=== PATIENT | female | born 1975 | race Caucasian/White ===

== ENCOUNTER 2017-12-30 02:08 | Emergency (ER) | payer OTHER ==
[~2017-12-30] VITALS: Ht 160 cm; Wt 49.9 kg
[2017-12-30] MEDS ORDERED: NOHOMEMEDICATIONS (02:33)
[2017-12-30 02:54] LABS: HEMATOCRIT 37.5 % (37.0-47.0); HEMOGLOBIN 12.6 gm/dL (12.0-15.0); MCH 35.2 pg (26.0-34.0); MCHC 33.6 g/dL (28.0-37.0); MCV 104.8 fL (80.0-100.0); RBC 3.58 mil/uL (4.20-5.00); RDW 16.1 % (10.5-14.5)
[2017-12-30 03:00] LABS: CREATININE 0.7 mg/dL (0.6-1.0); POTASSIUM 3.2 mmol/L (3.5-5.1)
[2017-12-30 03:06] LABS: ALBUMIN 3.2 g/dL (3.4-5.0); TOTAL BILIRUBIN 0.2 mg/dL (<0.1-1.0); TOTAL PROTEIN 7.4 g/dL (6.4-8.2)
[2017-12-30 03:11] LABS: URINE BILIRUBIN NEGATIVE (Negative); URINE BLOOD TRACE (Negative); URINE CLARITY CLEAR; URINE COLOR YELLOW; URINE GLUCOSE-RANDOM* NEGATIVE (Negative); URINE KETONES NEGATIVE (Negative); URINE NITRITE-REFLEX NEGATIVE (Negative); URINE PROTEIN (DIPSTICK) NEGATIVE (Negative); URINE UROBILINOGEN 0.2 E.U./dl (0.2-1.0)
[2017-12-30 03:15] LABS: URINE LEUKOCYTES-REFLEX 3+ (Negative)
[2017-12-30] MEDS ORDERED: SENNA S TABLET1 EACH PO (03:24)
[2017-12-30] MEDS ORDERED: KEFLEX500 M1 PO (03:24)
[2017-12-30] MEDS ORDERED: HYDROCORTISONE30 G9 RECTAL (03:24)
[2017-12-30 03:27] LABS: BACTERIA-REFLEX 1-9 Few /HPF (None Seen); CASTS None Seen /LPF (None Seen); CRYSTALS None Seen /LPF (None Seen); SQUAMOUS 4-10 Moderate /LPF (0-3); URINE RBC 0-2 Rare /HPF (0-2); URINE WBC-REFLEX >25 Many /HPF (0-5)
[2017-12-30 03:40] VITALS: BP 127/91
== END 2017-12-30 03:40 | disposition home or self-care (01) ==
LOC: ER 02:08
PROVIDERS: Emergency Medicine
DX: K60.2 Anal fissure, unspecified (principal); F17.210 Nicotine dependence, cigarettes, uncomplicated; Z88.1 Allergy status to other antibiotic agents